=== PATIENT | female | born 1955 | race Caucasian/White ===

== ENCOUNTER → 2016-09-27 | Outpatient (CLI) | payer BC ==
[~2016-09-27] MED LIST: B COMPLEX1 EACH PO; DULERA 200 MCG8.8 GM INH; FISH OIL300 MG PO; FLEXERIL 10 MG10 MG PO; GLASSIA INJ; LORTAB 5-325 M1 EACH PO; MEDROL DOSEPAK 24 MG PO; MULTIVITAMINS1 EAC1 PO; SYNTHROID150 MCG PO; VENTOLIN HFA 66.7 GM INH; VIBRAMYCIN 100100 MG PO; VITAMIN D32000 UNI1 PO
== END ==
LOC: RAD 12:43
DX: R05 Cough (principal)
CPT/HCPCS: 71020

== ENCOUNTER 2016-09-29 17:40 | Emergency (ER) | payer BC ==
[2016-09-29 22:35] LABS: RED BLOOD COUNT 4.79 M/UL (4.00-5.10); WHITE BLOOD COUNT 10.3 K/UL (4.5-11.0)
[2016-09-29 22:53] LABS: BUN/CREATININE RATIO 27 (0-10)
== END 2016-09-30 00:10 | disposition home or self-care (01) ==
LOC: ER1 17:40
PROVIDERS: Emergency Medicine
DX: J10.1 Influenza due to other identified influenza virus with other respiratory manifestations (principal); J44.9 Chronic obstructive pulmonary disease, unspecified; Z86.2 Personal history of diseases of the blood and blood-forming organs and certain disorders involving the immune mechanism; Z88.1 Allergy status to other antibiotic agents; Z88.2 Allergy status to sulfonamides
CPT/HCPCS: 36415; 36600; 71020; 80053; 82803; 84484; 85025; 87040; 93005; 94640; 94664; 96374; 99285; J2930

== ENCOUNTER 2016-11-03 07:26 | Observation (INO) | payer BC ==
[~2016-11-03] VITALS: Ht 167.6 cm; Wt 105.9 kg
[2016-11-03 09:25] LABS: HEMOGLOBIN 15.3 gm/dl (12.3-15.3); RED BLOOD COUNT 4.87 M/UL (4.00-5.10); WHITE BLOOD COUNT 7.6 K/UL (4.5-11.0)
[2016-11-03 09:53] LABS: BUN/CREATININE RATIO 27 (0-10)
[2016-11-03 21:13] LABS: HEMOGLOBIN 14.7 gm/dl (12.3-15.3); RED BLOOD COUNT 4.69 M/UL (4.00-5.10); WHITE BLOOD COUNT 9.9 K/UL (4.5-11.0)
[2016-11-03] MEDS ORDERED: SYNTHROID150 MCG PO (23:35)
[2016-11-03] MEDS ORDERED: GLASSIA INJ (23:38)
[2016-11-03] MEDS ORDERED: DULERA 200 MCG8.8 GM INH (23:39)
[2016-11-03] MEDS ORDERED: VENTOLIN HFA 66.7 GM INH (23:41)
[2016-11-03] MEDS ORDERED: VITAMIN D32000 UNI1 PO (23:41)
[2016-11-03] MEDS ORDERED: MULTIVITAMINS1 EAC1 PO (23:42)
[2016-11-03] MEDS ORDERED: FISH OIL300 MG PO (23:43)
[2016-11-03] MEDS ORDERED: B COMPLEX1 EACH PO (23:44)
[2016-11-04] MEDS ORDERED: FLEXERIL 10 MG10 MG PO (12:22)
[2016-11-04] MEDS ORDERED: LORTAB 5-325 M1 EACH PO (12:24)
[2016-11-04] MEDS ORDERED: MEDROL DOSEPAK 24 MG PO (12:25)
[2016-11-04] MEDS ORDERED: VIBRAMYCIN 100100 MG PO (12:27)
== END 2016-11-04 13:56 | disposition home or self-care (01) ==
LOC: ER1 07:26 → ZEROF 14:49 → MED SURG 4 14:49
PROVIDERS: Physician Assistant; ADMIT Family Medicine
DX: J96.20 Acute and chronic respiratory failure, unspecified whether with hypoxia or hypercapnia (principal); E88.01 Alpha-1-antitrypsin deficiency; J44.9 Chronic obstructive pulmonary disease, unspecified; J18.9 Pneumonia, unspecified organism; E03.9 Hypothyroidism, unspecified; S23.41XA Sprain of ribs, initial encounter; Z88.1 Allergy status to other antibiotic agents; Z88.2 Allergy status to sulfonamides; Z79.899 Other long term (current) drug therapy; Z90.49 Acquired absence of other specified parts of digestive tract; Z98.890 Other specified postprocedural states
CPT/HCPCS: 36415; 36600; 71020; 80053; 81001; 82550; 82553; 82803; 83690; 83874; 83880; 84484; 85025; 85379; 87040; 87086; 93005; 94640; 94664; 96374; 96375; 96376; 99285; G0378; J0456; J0696; J1200; J1956; J2270; J2405; J2930; J7030; J7050

== ENCOUNTER → 2016-12-09 | Outpatient (CLI) | payer BC | LOC: KOH-I 16:16 | DX: M25.561 Pain in right knee (principal); Z98.890 Other specified postprocedural states | CPT/HCPCS: 73590; 73610; 73630 ==

== ENCOUNTER → 2016-12-10 | Outpatient (CLI) | payer BC | LOC: KOH-I 13:09 | DX: M79.604 Pain in right leg (principal); M79.89 Other specified soft tissue disorders | CPT/HCPCS: 93971 ==